=== PATIENT | female | born 1985 | race Caucasian/White ===

== ENCOUNTER → 2020-08-08 16:07 | Outpatient (CLI) | payer BC, SELFPAY ==
--- NOTE | ~2020-08-08 | XR_ITS ---
XR foot RT min 3V DATE: 08/08/2020 16:33 INDICATION: Heel spurs TECHNIQUE: 4 views COMPARISON: None FINDINGS: No fracture or dislocation, periosteal reaction or bone destruction. No calcaneal spurs are identified. Joint spaces are preserved. IMPRESSION: Negative Reviewed, dictated and finalized at location A. IMPRESSION: Negative
--- NOTE | ~2020-08-08 | XR_ITS ---
EXAMINATION: XR heel RT min 2V DATE: 08/08/2020 16:33 INDICATION: Right heel pain. Right heel spur. TECHNIQUE: 2 views of right calcaneus were obtained. COMPARISON: None. FINDINGS: Bone alignment is normal. No fracture. Joint spaces are well maintained. There is no planta r heel spur. IMPRESSION: 1. Normal calcaneus. Reviewed, dictated and finalized at location A. IMPRESSION: 1. Normal calcaneus.
== END ==
PROVIDERS: Visit Provider Chiropractor
DX: M77.30 Calcaneal spur, unspecified foot (principal)
CPT/HCPCS: 73630; 73650

== ENCOUNTER → 2020-12-18 18:18 | Outpatient (CLI) | payer BC, SELFPAY ==
--- NOTE | ~2020-12-18 | XR_ITS ---
XR lumbar spine 2-3V DATE: 12/18/2020 18:33 INDICATION: Lumbar radiculopathy TECHNIQUE: AP, lateral, coned lateral lumbosacral views COMPARISON: None FINDINGS: There are 6 functional lumbar vertebrae. No fracture or dislocation or bone destruction. Lumbar and lumbosacral interspaces are well preserved . The sacroiliac joints are intact. Status post cholecystectomy IMPRESSION: 6 functional lumbar vertebrae. Reviewed, dictated and finalized at location A.
== END ==
PROVIDERS: PCP Physician Assistant; Visit Provider Physician Assistant
DX: M54.16 Radiculopathy, lumbar region (principal)
CPT/HCPCS: 72100

== ENCOUNTER 2025-02-08 09:56 | Outpatient (CLI) | payer BC, SELFPAY ==
--- NOTE | ~2025-02-08 | MM_ITS ---
EXAMINATION: MM screening sophia BI w huber HISTORY: Screening TECHNIQUE: Craniocaudal and mediolateral oblique 3-D tomosynthesis images were obtained and synthetic 2-D images were generated. CAD analysis was submitted and interpreted. COMPARISON: No prior mammogram is available for comparison at this institution. BREAST PARENCHYMAL COMPOSITION: The breasts are extremely dense, which lowers the sensitivity of mammography. FINDINGS: There is no evidence of suspicious mass, calcification, or architectural distortion to suggest malignancy in either breast. IMPRESSION: 1. No mammographic evidence of malignancy. Recommend routine screening mammography in one year. BI-RADS Category 1: Negative Reviewed, dictated and finalized at location Q. IMPRESSION: 1. No mammographic evidence of malignancy. Recommend routine screening mammogra phy in one year. BI-RADS Category 1: Negative
--- OUTSIDE RECORDS SUMMARY | 2025-02-08 11:27 | XMS_ITS | Clinical Summary ---
Author Organization [employer] [address] - [address] [facility] [address] [place] [address] Phone Care Team Providers Care Home Based Assistant Name Role Phone Unavailable Primary Care Provider Unavailabl e Medications busPIRone (BUSPAR) 5 mg tablet Take 1 Tablet (5 mg) by mouth 2 times daily. 60 Tablet 1 06/19/2022 4:04 PM COMMUNITY DEVELOPMENT TECHNICIAN 11/19/2021 Active azithromycin (Zithromax Z-Willis) 250 mg tablet TAKE 2 TABLETS (500 MG) BY MOUTH ONCE DAILY FOR 1 DAY THEN 1 TABLET (250 MG) BY MOUTH ONCE DAILY FOR 4 DAYS 6 Tablet 04/17/2022 3:01 PM COMMUNITY DEVELOPMENT TECHNICIAN 04/17/2022 Active sulfamethoxazol e-trimethoprim (Bactrim DS) 800-160 mg tablet Take 1 Tablet by mouth 2 times daily. 60 Tablet 05/07/2022 11:31 AM COMMUNITY DEVELOPMENT TECHNICIAN 05/06/2022 Active Acetaminophen-C aff-Butalbital 50-325-40 mg Capsule Take 1 Capsule by mouth every 4 hours as needed. 30 Capsule 11/04/2022 Active busPIRone (BUSPAR) 10 mg tablet Take 1 Tablet (10 mg) by mouth 2 times daily. 60 Tablet 6 05/20/2023 3:56 PM COMMUNITY DEVELOPMENT TECHNICIAN 03/05/2023 Active sertraline (ZOLOFT) 25 mg tablet TAKE 1 TABLET BY MOUTH EVERY DAY IN THE EVENING 30 Tablet 6 08/08/2023 11:09 AM CDT 03/05/2023 Active atomoxetine (Strattera) 40 mg capsule Take 1 Capsule (40 mg) by mouth daily in the morning. 30 Capsule 3 12/30/2023 9:34 AM CDT 12/25/2023 Active DULoxetine (CYMBALTA) 20 mg Capsule, Delayed Release(E.C.) Take 1 Capsule (20 mg) by mouth 2 times daily. 30 Capsule 1 06/16/2024 6:28 PM COMMUNITY DEVELOPMENT TECHNICIAN 06/14/2024 Active Encounters Date Type Department Care Team Description 12/14/2024 External Device Data [facility] Provider, Abstract 12/13/2024 External Device Data [facility] Provider, Abstract 11/29/2024 External Device Data [facility] Provider, Abstract 11/09/2024 External Device Data [facility] Provider, Abstract 11/09/2024 External Device Data [facility] Provider, Abstract from Last 3 Months Social History Tobacco Use Types Packs/Day Years Used Date Smoking Tobacco: Never Assessed Comments Unknown Sex and Gender Information Value Date Recorded Sex Assigned at Not on file Legal Sex Female 10:19 AM CDT Gender Identity Not on file Sexual Orientation Not on file Plan of Treatment Health Maintenance Due Date Last Done Comments DTAP/TDAP/TD VACCINES (1 - Tdap) 06/27/2006 HEPATITIS B VACCINES (1 of 3 - 19+ 3-dose series) 06/2006 HPV/Cotest (21-29) 06/27/2008 HPV VACCINES (1 - 3-dose SCDM series) 06/27/2014 CERVICAL CANCER SCREENING 06/27/2017 HPV/Cotest (30-65) 06/27/2017 PAP SMEAR 06/27/2017 INFLUENZA VACCINE (#1) 2024 Insurance [facility] [place] PPO RX [employer] (INTERNAL) [facility] [employer] RX [employer] Commercial RX [employer] Commercial RX [employer] (INTERNAL) [facility] [employer]
== END 2025-02-08 09:57 | disposition home or self-care (01) ==
LOC: CHSIMG 09:57
PROVIDERS: PCP Physician Assistant; Visit Provider Obstetrics & Gynecology
DX: Z12.31 Encounter for screening mammogram for malignant neoplasm of breast (principal)
CPT/HCPCS: 77063; 77067